=== PATIENT | male | born 1975 | race Caucasian/White ===

== ENCOUNTER 2017-02-18 22:47 | Emergency (ER) | payer MEDICAID, OTHER ==
[2017-02-18 23:11] VITALS: BP 153/92
[2017-02-18] MEDS ORDERED: LORazepam 1 MG Tab PO ONE (23:40)
--- NOTE | 2017-02-19 01:09 | EDM.PDOC ---
ED HPI Behavioral Health - General Chief Complaint: Behavioral/Psych Stated Complaint: POSS ANXIETY ATTACK Time Seen by Provider: 02/18/17 23:23 Source of Information: Reports: Patient, RN notes reviewed - History of Present Illness INITIAL COMMENTS - FREE TEXT/NARRATIVE: 41-year-old male presents to the ED with severe paranoia. He actually drove himself here to the ED from the [employer] near [place] about [place] of [facility]. He states that his father is a "cochlear" and is out to get him. He states that he now has his psychiatrist, mother and many other family members under his control. He admits that he does feel quite anxious, stressed out but in is very focused on the problem of his father been occult liter and "out to get him". No other family members present initially to give any further history. When asked about drugs he states that he does do occasional marijuana. He denies alcohol usage. He states he is out of his Effexor. States he still does take the Remeron and hydroxyzine. He does do 9 hallucinations at this time. He does admit that he has not been sleeping well. - Related Data Allergies Allergy/AdvReac Type Severity Reaction Status Date / Time No Known Allergies Allergy Verified 02/18/17 23:11 Home Medications: Home Meds Mirtazapine [Remeron] 45 mg PO DAILY 02/18/17 [History] Venlafaxine [Effexor XR 24 Hr] 75 mg PO DAILY 02/18/17 [History] hydrOXYzine HCl [Atarax] 100 mg PO QID 02/18/17 [History] Past Medical History Cardiovascular History: Reports: Hypertension Psychiatric History: Reports: Anxiety, Depression, PTSD Social & Family History - Family History Family Medical History: Noncontributory - Tobacco Use Smoking Status *Q: Current Every Day Smoker Years of Tobacco use: 25 Packs/Tins Daily: 1 - Recreational Drug Use Recreational Drug Use: Yes Recreational Drug Type: Reports: Marijuana/Hashish Recreational Drug Use Frequency: Daily ED ROS GENERAL - Review of Systems Review Of Systems: See Below Constitutional: Reports: no symptoms HEENT: Denies: Throat pain Respiratory: Denies: Shortness of Breath Cardiovascular: Denies: Chest pain GI/Abdominal: Denies: Abdominal pain, Nausea, Vomiting Musculoskeletal: Denies: neck pain, shoulder pain, back pain Skin: Reports: no symptoms Neurological: Denies: Numbness, Tingling Psychiatric: Reports: Anxiety. Denies: Hallucinations, Suicidal ideation ED EXAM, BEHAVIORAL HEALTH - Physical Exam Exam: See Below General Appearance: alert, anxious Eye Exam: bilateral eye: PERRL Throat/Mouth: Normal inspection, Normal oropharynx Head: atraumatic. No: facial swelling Neck: supple, full range of motion Respiratory/Chest: no respiratory distress, lungs clear, normal breath sounds Cardiovascular: regular rate, rhythm GI/Abdominal: soft, non tender. No: guarding Back Exam: No: CVA tenderness (L), CVA tenderness (R) Extremities: normal inspection, normal range of motion Neurological: alert, no motor/sensory deficits, oriented x 3 Psychiatric: alert, restless, flight of ideas, paranoid thoughts. No: auditory hallucinations, visual hallucinations Skin Exam: Warm, Dry, Normal color COURSE, BEHAVIORAL HEALTH COMP - Course Vital Signs: Last Vital Signs Temp 36.7 C 02/18/17 23:08 Pulse 96 02/18/17 23:08 Resp 18 02/18/17 23:08 BP 153/92 H 02/18/17 23:08 Pulse Ox 97 02/18/17 23:08 Orders, Labs, Meds: Laboratory Tests 02/18/17 02/18/17 02/18/17 Range/Units 23:50 23:50 23:50 WBC 10.71 H (4.23-9.07) K/mm3 RBC 4.82 (4.63-6.08) M/mm3 Hgb 13.8 (13.7-17.5) gm/L Hct 40.9 (40.1-51.0) % MCV 84.9 (79.0-92.2) fl MCH 28.6 (25.7-32.2) pg MCHC 33.7 (32.2-35.5) g/dl RDW Std Deviation 53.0 H (35.1-43.9) fL Plt Count 309 (163-337) K/mm3 MPV 10.3 (9.4-12.3) fl Neut % (Auto) 67.3 (34.0-67.9) % Lymph % (Auto) 24.1 (21.8-53.1) % Rice % (Auto) 7.0 (5.3-12.2) % Eos % (Auto) 0.9 (0.8-7.0) Baso % (Auto) 0.5 (0.1-1.2) % Neut # (Auto) 7.21 H (1.78-5.38) K/mm3 Lymph # (Auto) 2.58 (1.32-3.57) K/mm3 Rice # (Auto) 0.75 (0.30-0.82) K/mm3 Eos # (Auto) 0.10 (0.04-0.54) K/mm3 Baso # (Auto) 0.05 (0.01-0.08) K/mm3 Manual Slide Review Normal smear Sodium 142 (136-145) mEq/L Potassium 4.1 (3.5-5.1) mEq/L Chloride 105 (98-107) mEq/L Carbon Dioxide 27 (21-32) mEq/L Anion Gap 14.1 (5-15) BUN 19 H (7-18) mg/dL Creatinine 1.0 (0.7-1.3) mg/dL Est Cr Clr Drug Dosing 101.81 mL/min Estimated GFR (MDRD) > 60 (>60) mL/min BUN/Creatinine Ratio 19.0 H (14-18) Glucose 107 H (74-106) mg/dL Calcium 9.0 (8.5-10.1) mg/dL Total Bilirubin 0.2 (0.2-1.0) mg/dL AST 10 L (15-37) U/L ALT 20 (16-63) U/L Alkaline Phosphatase 112 (46-116) U/L Total Protein 7.4 (6.4-8.2) g/dl Albumin 4.5 (3.4-5.0) g/dl Globulin 2.9 gm/dL Albumin/Globulin Ratio 1.6 (1-2) Urine Opiates Screen Negative (NEGATIVE) Ur Buprenorphine Scrn Negative (NEGATIVE) Ur Oxycodone Screen Negative (NEGATIVE) Urine Methadone Screen Negative (NEGATIVE) Ur Propoxyphene Screen Negative (NEGATIVE) Ur Barbiturates Screen Negative (NEGATIVE) Ur Tricyclics Screen Negative (NEGATIVE) Ur Phencyclidine Scrn Negative (NEGATIVE) Ur Amphetamine Screen Negative (NEGATIVE) U Methamphetamines Scrn Negative (NEGATIVE) U Benzodiazepines Scrn Negative (NEGATIVE) U Cocaine Metab Screen Negative (NEGATIVE) U Marijuana (THC) Screen Negative (NEGATIVE) Ethyl Alcohol 0.00 (0.00) gm% Medications Discontinued Medications Generic Name Dose Route Start Last Admin Trade Name Patel BOWLES Reason Stop Dose Admin Haloperidol 5 mg 02/19/17 01:52 02/19/17 02:02 Haldol PO 02/19/17 01:53 5 mg ONETIME ONE Administration Lorazepam 1 mg 02/18/17 23:40 02/18/17 23:56 Ativan PO 02/18/17 23:41 1 mg ONETIME ONE Administration Re-Assessment/Re-Exam: I did phone his mother a short time ago. She is able to give further information. She states that he does have bipolar disorder as well as schizophrenia. This all was diagnosed many years ago. SHe states that he has been living at home for the last several years. He has been more paranoid than usual the last couple of weeks. SHe confirms that he did take his father's vehicle this evening and drove off. They did not know where he had gone and she is relieved to know that he is here in the emergency Department. SHe states that he did make a comment about a week ago to a family member that he feels like he is "in a dark hole and would be better off ". His regular Psychiatrist practices out of [facility]. It is not known when he has last seen a Psychiatrist. The [facility] unit is full at this time. [facility] does have one bed available and it is anticipated that it will be possible to have him transferred there later this morning. 01:50. I visit with Dr. Kang, Psychiatrist nutritional yeast supervisor for [facility] unit who does accept patient in transfer. 24 hr emergency [facility] and emergency transport commital papers have been filled out and signed by Dr Gilliam, also on duty at this time at change of shift. [facility] has been called for transport. It is anticipated that he may need to spend the remainder of the night at the [facility] awaiting deputy availability for transport. Patient was given Ativan 1 mg oral over one hour ago. With that he is resting very comfortably. Haldol5 mg also was ordered just a very short time ago. Departure - Departure Time of Disposition: 01:51 Disposition: DC/Tfer to Psych Hosp/Unit [facility] Condition: fair Clinical Impression: Schizophrenia Qualifiers: Schizophrenia type: unspecified Qualified Code(s): F20.9 - Schizophrenia, unspecified Psychosis Qualifiers: Psychosis type: schizophrenia Schizophrenia type: paranoid schizophrenia Qualified Code(s): F20.0 - Paranoid schizophrenia Referrals: PCP,None [Primary Care Provider] - Forms: ED Department Discharge Additional Instructions: He will be placed in the [facility] overnight. [facility] department will transport him to [facility] in [place] when able later this am.
[2017-02-19] MEDS ORDERED: Haloperidol 5 MG Tab PO ONE (01:52)
== END 2017-02-19 02:10 ==
LOC: JD.ED 22:47
DX: F20.0 Paranoid schizophrenia (principal); F17.210 Nicotine dependence, cigarettes, uncomplicated; I10 Essential (primary) hypertension; F41.8 Other specified anxiety disorders; Z79.899 Other long term (current) drug therapy
CPT/HCPCS: 36415; 80053; 80306; 85025; 99285; A9270; G0480